=== PATIENT | female | born 1940 | race Caucasian/White ===

== ENCOUNTER 2016-12-04 13:09 | Emergency (ER) | payer OTHER ==
[~2016-12-04] VITALS: Ht 142.2 cm; Wt 44.5 kg
[2016-12-04 13:22] VITALS: BP 134/68
--- NOTE | 2016-12-04 14:04 | NUR ---
PATIENT TO BED 4 AT THIS TIME.
--- NOTE | 2016-12-04 14:46 | NUR ---
76/F BIB FAMILY C/O PAIN TO RIGHT KNEE , LEFT WRIST AND SHOULDER S/P GLF YESTERDAY---TRIPPED COMING OUT OF CAR---AMBULATORY WITH STEADY GAIT; HX---ARTHRITIS. PAIN 6/10 ACHING NON-RADAITING. AAOx4, PERRLA, BREATHING EVEN AND UNLABORED. ERMD NOTIFIED OF PATIENT STATUS.
[2016-12-04] MEDS ORDERED: ONDANSETRON 4 MG/2 ML VIAL IM ONE (15:25)
[2016-12-04] MEDS ORDERED: MORPHINE SULFATE 4 MG/ML SYR IM ONE (15:25)
[2016-12-04 15:50] VITALS: BP 127/71
--- NOTE | 2016-12-04 15:50 | NUR ---
Patient discharged with v/s stable. Written and verbal after care instructions given and explained. Patient alert, oriented and verbalized understanding of instructions. Ambulatory with steady gait. All questions addressed prior to discharge. ID band removed. Patient advised to follow up with PMD. Rx of NAPROSYN 375MG TABLET given. Patient educated on indication of medication including possible reaction and side effects. Opportunity to ask questions provided and answered.
== END 2016-12-04 15:50 | disposition home or self-care (01) ==
LOC: MED 13:09
DX: S63.502A Unspecified sprain of left wrist, initial encounter (principal); S43.402A Unspecified sprain of left shoulder joint, initial encounter; M25.561 Pain in right knee; W19.XXXA Unspecified fall, initial encounter; Y93.89 Activity, other specified; Y92.89 Other specified places as the place of occurrence of the external cause; Y99.8 Other external cause status
CPT/HCPCS: 73030; 73090; 73110; 73562; 96372; 99284; J2270; J2405

== ENCOUNTER 2019-01-17 13:49 | Emergency (ER) | payer OTHER ==
[~2019-01-17] VITALS: Ht 139.7 cm; Wt 43.3 kg
[2019-01-17 13:57] VITALS: BP 114/52
[2019-01-17] MEDS ORDERED: FAMO-90 PO (14:10)
[2019-01-17] MEDS ORDERED: CIPR500T4 PO (14:11)
--- NOTE | 2019-01-17 14:14 | NUR ---
78 Y FEMALE BIB FAMILY C/O LOWER ABD PAIN X2 DAYS. CONSTANT SHARP PAIN AT 10/10 THAT RADIATES FROM LLQ TO RLQ. PT SAW PCP YESTERDAY AND RECIEVED CIPROFLOXACINA AND PEPCID. + N/V. LAST BM YESTERDAY, NORMAL. BOWEL SOUNDS ACTIVE IN ALL 4 QUADRANTS. ABDOMEN SOFT AND ROUND. DAUGHTER REPORTS FEVER AND CHILLS, TX WITH TYLENOL THIS MORNING APPROX 0500. VSS AT THIS TIME. AA0X4. FAMILY TRANSLATING HEBREW TO UKRAINIAN. BED IS DOWN, LOCKED, BED RAIL X 1, ERMD TO SEE PT. MEDHX:DENIES RX:PEPCID, AND CIPRO
--- NOTE | 2019-01-17 14:30 | NUR ---
DR WHITLOCK AT BEDSIDE
[2019-01-17] MEDS ORDERED: NACL 0.9% 1,000 ML IV ONE (14:35)
[2019-01-17] MEDS ORDERED: KETOROLAC 30 MG/ML VIAL IVP ONE (14:35)
[2019-01-17 15:08] LABS: BILIRUBIN,URINE NEGATIVE (NEGATIVE); BLOOD, URINE NEGATIVE (NEGATIVE); LEUKOCYTE ESTERASE ,URINE 1+ (NEGATIVE); NITRITE, URINE NEGATIVE (NEGATIVE); UGLUCOSE NEGATIVE (NEGATIVE)
[2019-01-17 15:09] LABS: HEMATOCRIT 34.5 % (36-48); HEMOGLOBIN 11.4 g/dL (12.0-16.0); MEAN CORPUSCULAR HEMOGLOBIN 30 pg (27-31); MEAN CORPUSCULAR HGB CONC 33 g/dL (33-37); MEAN CORPUSCULAR VOLUME 90.3 fL (80-94); PLATELET COUNT (AUTO) 279 K/uL (140-450); RED BLOOD CELL COUNT(AUTO) 3.82 MIL/uL (4.20-5.40); RED CELL DISTRIBUTION WIDTH 13.4 % (11.6-13.7); WHITE BLOOD COUNT (AUTO) 18.7 K/uL (4.8-10.8)
[2019-01-17 15:15] LABS: APPEARANCE,URINE HAZY (CLEAR)
[2019-01-17 15:16] LABS: COLOR,URINE AMBER (YELLOW)
[2019-01-17 15:20] LABS: RBC,URINE 0-5 /HPF (0-5); WBC,URINE 16-25 (MOD) /HPF (0-5)
[2019-01-17 15:21] LABS: CARBON DIOXIDE 25.4 mmol/L (21-32); CHLORIDE 100 mmol/L (98-107); CREATININE 0.7 mg/dL (0.6-1.3); GLUCOSE 134 mg/dL (74-106); POTASSIUM 3.4 mmol/L (3.5-5.1); SODIUM SERUM 136 mmol/L (136-145); UREA NITROGEN, BLOOD 10 mg/dL (7-18)
[2019-01-17 15:27] LABS: ALBUMIN 3.1 g/dL (3.4-5.0); AMYLASE 58 U/L (25-115); ASPARTATE AMINOTRANSFERASE 20 U/L (15-37); LIPASE 66 U/L (73-393); TOTAL BILIRUBIN 0.5 mg/dL (0.0-1.0)
[2019-01-17 15:28] LABS: LYMPHOCYTES % (MANUAL) 5 % (20-46); MONOCYTES % (MANUAL) 2 % (5-12)
[2019-01-17] MEDS ORDERED: LEVOFLOXACIN 500 MG/D5W PREMIX 100 ML IV ONE (15:50)
--- NOTE | 2019-01-17 16:08 | NUR ---
PATIENT TAKEN TO CT WITH DAWNA VIA [facility].
--- NOTE | 2019-01-17 16:37 | NUR ---
LAB AT BEDSIDE
--- NOTE | 2019-01-17 16:38 | NUR ---
LACTIC ACID 2.2, DR WHITLOCK NOTIFIED.
[2019-01-17] MEDS ORDERED: NACL 0.9% 500 ML IV ONE (16:40)
--- NOTE | 2019-01-17 18:08 | NUR ---
R FOREARM IV INFILTRATED. IV REMOVED. 2 ICE PACKS APPLIED TO SITE. SITE IS RED AND SWOLLEN AT THIS TIME.
--- NOTE | 2019-01-17 18:09 | NUR ---
DR WHITLOCK NOTIFIED REGARDING INFILTRATED IV. NO ORDERS GIVEN AT THIS TIME.
--- NOTE | 2019-01-17 18:48 | NUR ---
ANOTHER ICE PACK ADDED TO SITE
--- NOTE | 2019-01-17 18:48 | NUR ---
VSS AT THIS TIME. PT AA0X4. FAMILY BEDSIDE.
--- NOTE | 2019-01-17 19:17 | NUR ---
REPORT GIVEN TO OSKAR GUILLAUME
--- NOTE | 2019-01-17 19:20 | NUR ---
PT IN BED RESTING WITH EYES OPEN. STATES PAIN 4/10 BUT TOLLERABLE. VSS. FAMILY AT BEDSIDE. NO NEEDS AT THIS TIME. CONTINUE TO MONITOR.
--- NOTE | 2019-01-17 20:25 | NUR ---
GAVE REPORT TO DAKSHA AT [facility]
[2019-01-17] MEDS ORDERED: ACETAMINOPHEN EXTRA STRENGTH 500 MG TAB PO ONE (20:40)
--- NOTE | 2019-01-17 20:46 | NUR ---
PT VITAL RECHECK. TEMP 102.1. STATES PAIN WITH POSITION CHANGE. DR JUAREZ NOTIFIED. 1G TYLENOL GIVEN. Addendum: 01/17/19 at 2102 by MED PT VITAL RECHECK. TEMP 102.1. STATES PAIN WITH POSITION CHANGE BUT TOLLERABLE. DR JUAREZ NOTIFIED. 1G TYLENOL GIVEN.
[2019-01-17] MEDS ORDERED: ACETAMINOPHEN EXTRA STRENGTH 500 MG TAB ONE (20:54)
--- NOTE | 2019-01-17 20:55 | NUR ---
DAKSHA GUILLAUME CALLED AT [facility] AND UPDATED.
[2019-01-17 20:58] VITALS: BP 109/53
--- NOTE | 2019-01-17 20:58 | NUR ---
PT LEFT TO [facility]. ACCOMPANIED BY GRAND DAUGHTER. UPON DISHCARGE, PT ALERT TO NAME, PLACE, TIME, EVENT. AMBULATORY. PT STATES, "I FEEL BETTER THAN WHEN I GO THERE."
[2019-02-01] MEDS ORDERED: ACET-9525 PO (12:09)
== END 2019-01-17 20:58 ==
LOC: MED 13:49
DX: N20.0 Calculus of kidney (principal); N83.201 Unspecified ovarian cyst, right side; Z79.2 Long term (current) use of antibiotics
CPT/HCPCS: 36415; 74176; 80053; 81001; 82150; 83605; 83690; 85025; 87040; 87086; 96361; 96365; 96375; 99285; J1885; J1956; J7030

== ENCOUNTER 2019-02-25 16:13 | Observation (INO) | payer OTHER ==
[~2019-02-25] VITALS: Ht 137.2 cm; Wt 43.3 kg
[~2019-02-25 16:13] MED LIST: ACET-9525 PO
[2019-02-25 16:40] VITALS: BP 132/68
--- NOTE | 2019-02-25 16:50 | NUR ---
PATIENT AMBULATED WITH ASSISTANCE TO BED 6.
[2019-02-25] MEDS ORDERED: KETOROLAC 15 MG/ML VIAL IVP ONE (17:10)
[2019-02-25 17:42] LABS: BASOPHILS % (AUTO) 0.7 % (0.0-2.0); EOSINOPHILS # (AUTO) 0.1 K/uL (0-0.4); EOSINOPHILS % (AUTO) 2.3 % (0.0-4.0); HEMATOCRIT 37.7 % (36-48); HEMOGLOBIN 12.4 g/dL (12.0-16.0); LYMPHOCYTES % (AUTO) 16.5 % (20.5-51.1); MEAN CORPUSCULAR HEMOGLOBIN 30 pg (27-31); MEAN CORPUSCULAR HGB CONC 33 g/dL (33-37); MEAN CORPUSCULAR VOLUME 89.7 fL (80-94); MONOCYTES # (AUTO) 0.4 K/uL (0.8-1.0); MONOCYTES % (AUTO) 6.9 % (1.7-9.3); NEUTROPHILS # (AUTO) 4.2 K/uL (1.8-7.7); NEUTROPHILS % (AUTO) 73.6 % (42.2-75.2); PLATELET COUNT (AUTO) 308 K/uL (140-450); RED CELL DISTRIBUTION WIDTH 13.9 % (11.6-13.7); WHITE BLOOD COUNT (AUTO) 5.8 K/uL (4.8-10.8)
--- NOTE | 2019-02-25 17:42 | NUR ---
PT BIB DAUGHTER C/O INTERMITTENT LLQ/LUQ ABD PAIN AND GENERALIZED WEAKNESS X 2 WEEKS. ABD FLAT, FIRM, TENDER TO TOUCH, BOWEL SOUNDS ACTIVE X4 QUADRANTS. PER PT'S DAUGHTER, PT HAD APPENDECTOMY 01/30/19. PT DENIES N/V/D. NO URINARY COMPLAINTS. VSS. HX: DENIES RX: DENIES
[2019-02-25 17:51] LABS: CARBON DIOXIDE 26.9 mmol/L (21-32); CHLORIDE 105 mmol/L (98-107); CREATININE 0.7 mg/dL (0.6-1.3); GLUCOSE 116 mg/dL (74-106); POTASSIUM 3.9 mmol/L (3.5-5.1); SODIUM SERUM 140 mmol/L (136-145); UREA NITROGEN, BLOOD 12 mg/dL (7-18)
[2019-02-25 17:57] LABS: ALBUMIN 3.3 g/dL (3.4-5.0); ASPARTATE AMINOTRANSFERASE 16 U/L (15-37); TOTAL BILIRUBIN 0.2 mg/dL (0.0-1.0)
[2019-02-25 18:01] LABS: APPEARANCE,URINE CLEAR (CLEAR); BILIRUBIN,URINE NEGATIVE (NEGATIVE); BLOOD, URINE TRACE-L (NEGATIVE); COLOR,URINE YELLOW (YELLOW); LEUKOCYTE ESTERASE ,URINE NEGATIVE (NEGATIVE); NITRITE, URINE NEGATIVE (NEGATIVE); PH,URINE 5.5 (5.0-9.0); UGLUCOSE NEGATIVE (NEGATIVE)
--- NOTE | 2019-02-25 18:12 | NUR ---
PT AMBULATED TO BATHROOM ACCOMPANIED BY DAUGHTER. STATED SHE HAD NO PAIN PRIOR TO BATHROOM AND AFTER WALKING TO BATHROOM SHE SAID HER PAIN WAS 10/16. Addendum: 02/25/19 at 1815 by [email or web address] MARINA.
[2019-02-25 18:13] LABS: RBC,URINE NONE SEEN /HPF (0-5); WBC,URINE 0-5 /HPF (0-5)
--- NOTE | 2019-02-25 20:10 | NUR ---
PT LAYING IN BED, RR EVEN AND UNLABORED. REPORTS 1/10 LLQ/L PELVIC PAIN. ALL NEEDS MET.
--- NOTE | 2019-02-25 20:17 | NUR ---
Patient will be admitted to care of DR KSESLER. Admited to MS. Will go to room 122B. Belongings list completed. Report to WENDY GUILLAUME.
--- NOTE | 2019-02-25 20:27 | NUR ---
RECEIVED REPORT FROM ER NURSE FLORINA, PATIENT AMBULATES WITH ASSISTANCE. PATIENT ANOx4, BANGLADESHI SPEAKING, DAUGHTER AT BEDSIDE. WILL FOLLOWUP CARE
[2019-02-25 20:30] VITALS: BP 138/64
--- NOTE | 2019-02-25 20:35 | NUR ---
[id number], TRAVEL PT ON PHONE TO ASSIST WITH GHANAIAN SPEAKING ONLY, HISTORY AND PHYSICAL ASSESSMENT
[2019-02-25] MEDS: DEXT 5% / NACL 0.45% 1,000 ML IV SCH (20:40)
--- NOTE | 2019-02-25 20:45 | NUR ---
RECEIVED PATIENT ANOx4, AZERI SPEAKING ONLY, AMBULATING TO BED WITH STANDBY ASSIST. BASELINE VITALS HR-75, BP-138/64, RR-20, TEMP-97.2, AND O2 SATS- 95% ON ROOM AIR, PAIN-5/10, RECEIVED TORADOL IN ER. C/O PAIN ONLY WHEN PATIENT MOVES AROUND AND AMBULATES. LEFT HAND PERIPHERAL IV 24G, FLUSHED, PATENT AND INTACT. SKIN IS INTACT, VITILIGO NOTED THROUGHOUT BODY (WHITE PATCHES/DISCOLORATION) BUT NO SIGNS OF OPEN WOUNDS. PERRLA, BRISK 3MM, LUNG SOUNDS CLEAR, EQUAL CHEST RISE, S1S2, ABDOMEN SOFT, AND TENDER TO TOUCH ON LOWER LEFT SIDE. BOWEL SOUNDS ACTIVE, LAST BM REPORTED THIS MORNING 02/25/19. DENIES CONSTIPATION OR DIARRHEA, VOMITED A WEEK AGO FROM THE PAIN AND REPORTS LOSS OF APPETITE IN PAST WEEK. PATIENT HAS BATHROOM PRIVILEGES, DAUGHTER AT BEDSIDE, ORIENTED TO CALL LIGHT AND BED, CALL LIGHT WITHIN REACH, SIDERAILS UPx2, BED LOCKED AND IN LOW POSITION. WILL CARRY OUT ORDERS AND FOLLOWUP CARE.
--- NOTE | 2019-02-25 21:30 | NUR ---
DR. RICHARDS AT BEDSIDE, HISTORY AND PHYSICAL DONE., ASSISTED WITH HIS NEEDS FOR PT.
[2019-02-25] MEDS: MORPHINE SULFATE 2 MG/ML SYR IVP PRN (22:22)
--- NOTE | 2019-02-25 23:20 | NUR ---
PATIENT REQUESTING ASSISTANCE IN USING RESTROOM. PATIENT AMBULATES TO AND FROM BED TO BATHROOM. PAIN LEVEL IS A 2/10 BUT IS TOLERABLE. PATIENT REQUESTING FOR ANOTHER BLANKET. WILL CONTINUE FREQUENT ROUNDS
[2019-02-26] VITALS: BP 120/70
--- NOTE | 2019-02-26 00:10 | NUR ---
VITAL SIGNS TAKEN, PATIENT TOLERATED WELL. ALL VITALS WITHIN NORMAL LIMITS. ASKED IF PATIENT NEEDS THE RESTROOM, DOES NOT NEED TOILETING AT THIS TIME. REORIENTED THE PATIENT TO CALL LIGHT AND TO USE IT WHEN SHE NEEDS TO USE THE RESTROOM. PATIENT DENIES PAIN AT THIS TIME, SAYS IT ONLY HURTS IF SHE LIES LEFT LATERAL POSITION. WILL CONTINUE TO MONITOR
--- NOTE | 2019-02-26 02:39 | NUR ---
CALL LIGHT ON, PATIENT REQUESTING ASSISTANCE TO WALK TO RESTROOM. ABLE TO AMBULATE TO AND FROM TOILET. IV FLUIDS STILL RUNNING, SITE IS DRY AND INTACT. ASYMPTOMATIC. DENIES PAIN.
--- NOTE | 2019-02-26 04:20 | NUR ---
PATIENT IS AWAKE TO GET LABS DRAWN, TOLD HER WE COULD DO SPONGE BATH AND BRUSH HER TEETH AT THIS TIME. PATIENT REQUESTS TO DO SPONGE BATH AND ORAL CARE IN THE MORNING WHEN SHE WAKES UP. PATIENT TOLERATED LAB DRAW WELL. SIDE RAILS UP, AND CALL LIGHT WITHIN REACH, PATIENT DOES NOT NEED TOILETING AT THIS TIME
--- NOTE | 2019-02-26 06:05 | NUR ---
PATIENT RESTING WELL IN BED, EYES CLOSED, RIGHT LATERAL, CHEST RISE AND FALL. IV CONNECTED TO D51/2NS @ 50ML. FLACC 0. SAFETY MEASURES IN PLACE.
[2019-02-26 06:33] LABS: ALBUMIN 2.9 g/dL (3.4-5.0); ANION GAP 12.6 (8-16); ASPARTATE AMINOTRANSFERASE 15 U/L (15-37); CARBON DIOXIDE 26.1 mmol/L (21-32); CHLORIDE 107 mmol/L (98-107); CREATININE 0.5 mg/dL (0.6-1.3); GLUCOSE 96 mg/dL (74-106); POTASSIUM 3.7 mmol/L (3.5-5.1); SODIUM SERUM 142 mmol/L (136-145); TOTAL BILIRUBIN 0.2 mg/dL (0.0-1.0); UREA NITROGEN, BLOOD 11 mg/dL (7-18)
--- NOTE | 2019-02-26 07:29 | NUR ---
RECEIVED REPORT FROM NECK FITTER RN. PT IS AAOX4, AMBULATORY. PT ABLE TO MAKE NEEDS KNOWN WELL IN FINNISH. PT SKIN IS INTACT. LUNG SOUNDS CLEAR. IV IN THE LEFT HAND 24G INFUSING D51/2NS AT 50ML/HR. IV IS PATENT AND INTACT. EXPLAINED POC TO PT. PT VERBALIZED UNDERSTANDING. TOLD PT TO CALL WHEN NEEDING TO AMBULATE. PT VERBALIZED UNDERSTANDING AND AGREED. BED IN LOW POSITION, CALL LIGHT WITHIN REACH. WILL ROUND FREQUENTLY ON PT.
[2019-02-26 07:46] LABS: BASOPHILS % (AUTO) 0.6 % (0.0-2.0); EOSINOPHILS # (AUTO) 0.2 K/uL (0-0.4); EOSINOPHILS % (AUTO) 2.3 % (0.0-4.0); HEMATOCRIT 35.2 % (36-48); HEMOGLOBIN 11.9 g/dL (12.0-16.0); LYMPHOCYTES % (AUTO) 15.3 % (20.5-51.1); MEAN CORPUSCULAR HEMOGLOBIN 30 pg (27-31); MEAN CORPUSCULAR HGB CONC 34 g/dL (33-37); MEAN CORPUSCULAR VOLUME 88.9 fL (80-94); MONOCYTES # (AUTO) 0.5 K/uL (0.8-1.0); MONOCYTES % (AUTO) 7.6 % (1.7-9.3); NEUTROPHILS % (AUTO) 74.2 % (42.2-75.2); PLATELET COUNT (AUTO) 285 K/uL (140-450); RED BLOOD CELL COUNT(AUTO) 3.95 MIL/uL (4.20-5.40); WHITE BLOOD COUNT (AUTO) 6.7 K/uL (4.8-10.8)
[2019-02-26 08:00] VITALS: BP 92/55
--- NOTE | 2019-02-26 08:04 | NUR ---
PATIENT HAS BEEN SCREENED AND CATEGORIZED MODERATE NUTRITION RISK. PATIENT WILL BE SEEN WITHIN 3-5 DAYS OF ADMISSION. 02/28/19[address]
--- NOTE | 2019-02-26 09:51 | NUR ---
PT RESTING IN BED WITH DAUGHTER AT BEDSIDE. ALL NEEDS CURRENTLY MET. WILL CONTINUE TO ROUND FREQUENTLY ON PT.
--- NOTE | 2019-02-26 10:28 | NUR ---
CONTACTED PATIENT'S PCP GOLD THOMPSON AT [phone] REGARDING POST DISCHARGE APPOINTMENT, ABLE TO SPEAK TO SID. SHE STATED THAT PATIENT CAN JUST WALK IN, MON TO FRI FROM 8-6PM. COPY OF APPOINTMENT PROVIDED TO THE PATIENT. INSTRUCTED WELL TO BRING DISCHARGE PACKET TO THE APPOINTMENT, ABLE TO VERBALIZE UNDERSTANDING.
--- NOTE | 2019-02-26 11:34 | NUR ---
PT RESTING IN BED WITH DAUGHTER AT BEDSIDE. PT AMBULATING WELL TO BATHROOM WITH STANDBY ASSIST. ALL NEEDS CURRENTLY MET. WILL CONTINUE TO ROUND FREQUENTLY ON PT
--- NOTE | 2019-02-26 13:20 | NUR ---
PT RESTING IN BED. ALL NEEDS CURRENTLY MET. WILL CONTINUE TO ROUND FREQUENTLY ON PT.
--- NOTE | 2019-02-26 15:34 | NUR ---
PT RESTING IN BED WITH FAMILY AT BEDSIDE. PT IN STABLE CONDITION, ALL NEEDS MET. BED IN LOW POSITION. WILL CONTINUE TO ROUND FREQUENTLY ON PT.
[2019-02-26] MEDS: DEXT 5% / NACL 0.45% 1,000 ML IV SCH (15:59)
[2019-02-26 16:00] VITALS: BP 103/63
--- NOTE | 2019-02-26 17:36 | NUR ---
PT RESTING IN BED WITH DAUGHTER AT BEDSIDE. AWAITING D/C. PAGED AT 1700. AWAITING CALLBACK FOR OK TO DC PT.
--- NOTE | 2019-02-26 19:40 | NUR ---
ENDORSED PT TO OUTSIDE RESIDENTIAL SALES PROFESSIONAL FOR CONTINUITY OF CARE. PT IN STABLE CONDITION AT THIS TIME.
--- NOTE | 2019-02-26 19:41 | NUR ---
RECD. RESTING IN BED, AWAKE, A/OX4. RESPIRATION EVEN AND UNLABORED. IV OF D5 1/2NS AT 50 ML/HR INFUSING, LEFT HAND G24 ALREADY STOPPED BY AM NURSE. PATIENT AND DAUGHTER AWARE OF DISCHARGE TONIGHT. NO COMPLAINT OF ABDOMINAL PAIN 010 AT THIS TIME 010.
[2019-02-26 19:55] VITALS: BP 130/57
--- NOTE | 2019-02-26 20:15 | NUR ---
INFORMED DR. KESSLER PATIENT DAUGHTER IS REQUESTING FOR PAIN MEDICATION PRESCRIPTION. PATIENT CAN TAKE TYLENOL EXTRA STRENGTH 1 TAB PO EVERY 4 HOURS OR IBUPROFEN 600 MG. PO EVERY 6 HRS. FOR PAIN.
--- NOTE | 2019-02-26 20:30 | NUR ---
DISCHARGE INSTRUCTIONS GIVEN TO PATIENT AND DAUGHTER WITH THE HELP OF IVORY POLISHER LIANE #[id number]. PATIENT DAUGHTER UNDERSTAND THAT PATIENT HAVE APPOINTMENT ON SUNDAY AT [address] RICHARDS. INSTRUCTED PATIENT TO TAKE EXTRA STRENGTH TYLENOL 1 TABLET FOR PAIN EVERY FOUR HOURS PER DR. KESSLER INSTRUCTION. PATIENT DAUGHTER VERBALIZED UNDERSTANDING TO ALL DISCHARGE INSTRUCTION GIVEN.
[2019-02-26] MEDS: MORPHINE SULFATE 2 MG/ML SYR IVP PRN (20:41)
--- NOTE | 2019-02-26 20:41 | NUR ---
PATIENT DAUGHTER REQUESTED TO PAIN MEDICATION BEFORE DISCHARGE. MADE AWARE THAT THEY HAVE TO WAIT FOR 45 MINUTES TO AN HOUR BEFORE THEY CAN GO HOME AFTER PAIN MEDICATION GIVEN. BOTH AGREED.
--- NOTE | 2019-02-26 21:40 | NUR ---
PATIENT RESTING COMFORTABLY IN BED. NO COMPLAINT OF PAIN 0/10.
--- NOTE | 2019-02-26 22:00 | NUR ---
SIGNED ALL DISCHARGE PAPERS. IV SALINE LOCK REMOVED.
--- NOTE | 2019-02-26 22:26 | NUR ---
TAKEN TO HOSPITAL LOBBY PARKING AREA VIA W/C IN STABLE CONDITION ACCOMPANIED BY DAUGHTER AND SENIOR CONTROLS ANALYST.
== END 2019-02-26 22:30 | disposition home or self-care (01) ==
LOC: MED 16:13 → MTU 19:56
PROVIDERS: ADMIT Internal Medicine; ATTEND Internal Medicine
DX: N83.202 Unspecified ovarian cyst, left side (principal)
CPT/HCPCS: 36415; 76856; 80053; 81001; 85025; 87081; 93976; 96374; 96375; 96376; 99285; G0378; J1885; J2270; Q0092

== ENCOUNTER 2019-08-02 14:45 | Emergency (ER) | payer OTHER ==
[~2019-08-02] VITALS: Ht 137.2 cm; Wt 42.2 kg
[2019-08-02 14:54] VITALS: BP 127/64
--- NOTE | 2019-08-02 16:02 | NUR ---
PATIENT PRESENTS TO ED WITH RIGHT KNEE AND RIGHT ARM PAIN S/P FALL A FEW HOURS AGO. PER PATIENT'S DAUGHTER, PT DID NOT HIT HER HEAD. PT STATES 10/10 PAIN, WITH LIMITATION OF MOVEMENT OF AFFECTED AREAS. NO LOC, NO VOMITING. PT TOOK TYLENOL AT 10AM THIS MORNING. PT IS AAOX4. VSS; PATIENT POSITIONED FOR COMFORT; HOB ELEVATED; BEDRAILS UP X2; BED DOWN. ER MD MADE AWARE OF PT STATUS. PMH: NONE MEDS: UNKNOWN MEDICATION FOR VAGINAL INFECTION ALLERGIES: NONE
--- NOTE | 2019-08-02 16:09 | NUR ---
Dr. Nunez is evaluating the patient at bedside.
--- NOTE | 2019-08-02 16:40 | NUR ---
RESULTS BACK AND NOTED BT ERMD AND FOR D/C.
[2019-08-02] MEDS ORDERED: MORPHINE SULFATE 4 MG/ML SYR IM ONE (17:05)
[2019-08-02] MEDS ORDERED: MORPHINE SULFATE 5 MG/ML VIAL IM ONE (17:05)
[2019-08-02 17:34] VITALS: BP 127/64
--- NOTE | 2019-08-02 17:35 | NUR ---
Patient discharged with v/s stable. Written and verbal after care instructions given and explained. Patient alert, oriented and verbalized understanding of instructions. Wheel Chair Assisted with by caregiver. All questions addressed prior to discharge. ID band removed. Patient advised to follow up with PMD. Rx of TYLENOL given. Patient educated on indication of medication including possible reaction and side effects. Opportunity to ask questions provided and answered.
== END 2019-08-02 17:35 | disposition home or self-care (01) ==
LOC: MED 14:45
DX: S80.211A Abrasion, right knee, initial encounter (principal); M25.511 Pain in right shoulder; M25.461 Effusion, right knee; W18.39XA Other fall on same level, initial encounter; Y92.89 Other specified places as the place of occurrence of the external cause; Y93.89 Activity, other specified; Y99.8 Other external cause status
CPT/HCPCS: 73030; 73562; 96372; 99283; J2270

== ENCOUNTER 2019-08-02 20:01 | Inpatient (IN) | payer OTHER ==
[~2019-08-02] VITALS: Ht 149.9 cm; Wt 45.4 kg
[2019-08-02 20:12] VITALS: BP 161/73
--- NOTE | 2019-08-02 20:36 | NUR ---
79 Y/O FEMALE BIB FAMILY C/O VOMITING S/P RECEIVING MORPHINE TODAY. PT WAS SEEN AT [facility] TODAY S/P FALL AND C/O RT LET PAIN. PT STATES SHE HAS VOMITTED 5X SINCE SHE WAS DISCHARGED AT NOON. ABD SOFT, ROUND NONTENDER. BOWEL SOUNDS PRESENT X4. RR EVEN AND UNLABORED. PT PLACED ON THE MONITOR. PT LAYING IN BED CALM AND PLEASANT. FAMILY AT BEDSIDE. MEDHX: DENIES ALLERGIES: LUKE
--- NOTE | 2019-08-02 21:02 | NUR ---
PT O2SAT 88% RA. PT PLACED ON 2L NC. O2SAT 95% ON NC
--- NOTE | 2019-08-02 22:22 | NUR ---
PT LAYING IN BED WITH EYES CLOSED, VISIBLE RISE AND FALL OF THE CHEST. PT REMAINS ON MONITOR. VSS. FAMILY AT BEDSIDE. WILL CONTINUE TO MONITOR
[2019-08-02] MEDS ORDERED: ONDANSETRON 4 MG ODT PO ONE (22:30)
[2019-08-02] MEDS ORDERED: NACL 0.9% 500 ML IV STA (22:34)
[2019-08-02] MEDS ORDERED: ONDANSETRON 4 MG ODT PO STA (22:34)
--- NOTE | 2019-08-02 22:37 | NUR ---
PT TO CT VIA [facility].
--- NOTE | 2019-08-02 22:52 | NUR ---
PT RETURN FROM CT
--- NOTE | 2019-08-02 23:23 | NUR ---
PT DENIES NAUSEA AND VOMITING AT THIS TIME.
--- NOTE | 2019-08-02 23:35 | NUR ---
LAB AT BEDSIDE.
[2019-08-02 23:50] LABS: BASOPHILS % (AUTO) 0.2 % (0.0-2.0); EOSINOPHILS % (AUTO) 0.2 % (0.0-4.0); HEMATOCRIT 37.7 % (36-48); HEMOGLOBIN 12.5 g/dL (12.0-16.0); LYMPHOCYTES # (AUTO) 0.7 K/uL (2.5-16.5); LYMPHOCYTES % (AUTO) 6.6 % (20.5-51.1); MEAN CORPUSCULAR HEMOGLOBIN 30 pg (27-31); MEAN CORPUSCULAR HGB CONC 33 g/dL (33-37); MEAN CORPUSCULAR VOLUME 89.8 fL (80-94); MONOCYTES # (AUTO) 0.3 K/uL (0.8-1.0); MONOCYTES % (AUTO) 3.1 % (1.7-9.3); NEUTROPHILS # (AUTO) 9.6 K/uL (1.8-7.7); PLATELET COUNT (AUTO) 295 K/uL (140-450); RED CELL DISTRIBUTION WIDTH 14.1 % (11.6-13.7); WHITE BLOOD COUNT (AUTO) 10.6 K/uL (4.8-10.8)
[2019-08-03 00:06] LABS: ANION GAP 12.7 (8-16); CARBON DIOXIDE 27.4 mmol/L (21-32); CHLORIDE 109 mmol/L (98-107); CREATININE 0.6 mg/dL (0.6-1.3); GLUCOSE 140 mg/dL (74-106); POTASSIUM 4.1 mmol/L (3.5-5.1); SODIUM SERUM 145 mmol/L (136-145); UREA NITROGEN, BLOOD 15 mg/dL (7-18)
[2019-08-03 00:16] LABS: NEUTROPHILS % (AUTO) 89.9 % (42.2-75.2)
--- NOTE | 2019-08-03 01:10 | NUR ---
LAYING IN BED WITH EYES CLOSED. AROUSABLE TO NAME. RR EVEN AND UNLABORED. FAMILY AT BEDSIDE. VSS. WILL CONTINUE TO MONITOR
--- NOTE | 2019-08-03 02:51 | NUR ---
Dr. Grady examining patient.
--- NOTE | 2019-08-03 03:07 | NUR ---
PT RESTING IN BED AWAKE AND ALERT. RR EVEN AND UNLABORED. REMAINS ON MONITOR. VSS. WILL CONTINUE TO MONITOR.
--- NOTE | 2019-08-03 04:13 | NUR ---
RR EVEN AND UNLABORED, PT AROUSABLE TO NAME. FAMILY AT BEDSIDE. WILL CONTINUE TO MONITOR.
--- NOTE | 2019-08-03 05:40 | NUR ---
RECEIVED REPORT FROM ED RN FOR PT'S CONTINUITY OF CARE. PT IS AAOX4, HUNGARIAN SPEAKING BUT OBEYS SIMPLE COMMANDS. VITAL SIGNS CHECKED AND CHARTED. PT IS ON ROOM AIR, HAS RIGHT FA 22G SALINE LOCK, FAMILY MEMBERS AT BEDSIDE, PT DENIES ANY PAIN. SKIN IS INTACT. MRSA NARES SCREENING DONE AND SENT TO LAB. PT VOIDED ONCE IN BEDPAN. PT WEAK DT RIGHT PATELLA FX. ON FALL PRECAUTION. SAFETY MEASURES IN PLACE. CALL LIGHT IS WITHIN REACH. WILL ENDORSE TO AM SHIFT RN FOR PT'S CONTINUITY OF CARE.
--- NOTE | 2019-08-03 05:43 | NUR ---
Patient will be admitted to care of DR RIVERO. Admited to MED SURG. Will go to room 111A. Belongings list completed. Report to MARKELL BESS.
[2019-08-03 06:45] VITALS: BP 107/51
--- NOTE | 2019-08-03 07:10 | NUR ---
RECEIVED BEDSIDE REPORT FROM HAT BLOCKING OPERATOR NURSE MARIA ALEJANDRA. PT IS CHILEAN SPEAKING ONLY, AWAKE AND IN NO DISTRESS. ON ROOM AIR. SKIN IS INTACT. IV SITE R FA [address] G. FALL PRECAUTIONS IN PLACE. CALL LIGHT IS WITHIN REACH.
[2019-08-03 08:00] VITALS: BP 118/55
[2019-08-03] MEDS ORDERED: MORPHINE SULFATE 2 MG/ML SYR IVP PRN ×2 (08:30→10:25)
[2019-08-03] MEDS ORDERED: HYDROcodone/APAP 5/325 MG 1 TAB TAB PO PRN (08:30)
--- NOTE | 2019-08-03 08:30 | NUR ---
CALLED DR RIVERO FOR DIET AND PAIN MED ORDERS. PT HAS BEEN C/O MODERATE RLE PAIN THIS AM. DR RIVERO TORB NORCO 5/325 PO Q4H FOR MODERATE PAIN; MORPHINE 2 MG IVP Q4H FOR SEVERE PAIN; REGULAR DIET; AND PT EVALUATION.
--- NOTE | 2019-08-03 10:23 | NUR ---
PT SEEN BY DR RIVERO
[2019-08-03] MEDS ORDERED: ACETAMINOPHEN 325 MG TAB PO PRN (10:25)
[2019-08-03] MEDS ORDERED: ONDANSETRON 4 MG/2 ML VIAL IVP PRN (10:25)
--- NOTE | 2019-08-03 11:00 | NUR ---
PT HAD EMESIS EPISODE X 2. PRN IV ZOFRAN ADMINISTERED.
--- NOTE | 2019-08-03 14:02 | NUR ---
PT IS VISITING WITH DAUGHTER AT THE BEDSIDE. PT STATES THAT SHE IS NO LONGER NAUSEOUS, BUT IS AFRAID TO EAT HER LUNCH BECAUSE SHE IS SCARED TO VOMIT AGAIN. PT REPORTS THAT SHE IS NOT HUNGRY AT THIS TIME. I ENCOURAGED PT TO EAT IN SMALL BITES, AND EAT ONLY THE FOODS SHE FEELS SHE WILL BE ABLE TO TOLERATED. ALSO ENCOURAGED DAUGHTER TO BRING FOOD FROM HOME, IF IT MAKES PT FEEL MORE COMFORTABLE. PT IS ON A REGULAR DIET.
--- NOTE | 2019-08-03 15:52 | NUR ---
PT'S BP IS 93/49 AT THIS TIME. PT IS ASYMPTOMATIC OF LOW BP. NO S/S OF ACUTE DISTRESS NOTED. PT ENCOURAGED TO INCREASE PO FLUID INTAKE, PROVIDED WITH A CUP OF TEA WHICH SHE AGREED TO DRINK. FAMILY IS AT BEDSIDE.
[2019-08-03 16:00] VITALS: BP 93/49
--- NOTE | 2019-08-03 17:28 | NUR ---
PT VISITING WITH FAMILY, ASKED FOR ANOTHER CUP OF TEA. NO S/S OF ANY DISTRESS.
--- NOTE | 2019-08-03 18:26 | NUR ---
BP RECHECKED, 101/62 AT THIS TIME. PT IS IN NO DISTRESS. FAMILY VISITING AT BEDSIDE. PT ATE 100% OF DINNER.
[2019-08-03 18:27] VITALS: BP 101/62
--- NOTE | 2019-08-03 19:15 | NUR ---
ENDORSED PT TO CURTAIN FRAMER NURSE IN STABLE CONDITION.
--- NOTE | 2019-08-03 19:19 | NUR ---
RECEIVED REPORT AT BEDSIDE FORM ARUN GUILLAUME DAYSHIFT NURSE AT BEDSIDE FOR CONTINUITY IF CARE, PT IN STABLE CONDITION.
--- NOTE | 2019-08-03 20:00 | NUR ---
PT IN BED SHE IS AOX3, SYRIAC SPEAKING. SKIN INTACT AND RIGHT KNEE IS SWOLLEN. PT HAS R F/A 22G INTACT AND ASYMPTOMATIC. PT ON FALLS PROTOCOL AND IS NON WEIGHT BEARING OF R LEG. V/S FOLLOWS: T 99.9 P 101 R 20 B/P 116/61 02 96% WITH 3 LITERS N/C. PT WAS STATING 87% ON ROOM AIR, SHE WAS GIVEN SUPPLEMENTAL 02 VIA N/C FOR COMFORT. PT SAID SHE HAS SOME PAIN BUT IT IS TOLERABLE AT THIS TIME. ALL FALL PROTOCOL IN PLACE.
[2019-08-03] MEDS: HYDROcodone/APAP 5/325 MG 1 TAB TAB PO PRN (21:41)
--- NOTE | 2019-08-03 22:00 | NUR ---
PT C/O 710 PAIN IN RIGHT KNEE, SHE WAS GIVEN 1 TAB NORCO PO/PRN FOR PAIN. WILL MONITOR FOR PAIN RELIEF.
[2019-08-04] VITALS: BP 97/56
--- NOTE | 2019-08-04 | NUR ---
PT IN BED RESTING WITH EYES CLOSED. V/S FOLLOWS: T 98.2 P 91 R 18 B/P 97/56 03 97% WITH 3.5 LITERS VIA N/C. ALL FALLS PRECAUTIONS IN PLACE.
[2019-08-04] MEDS: HYDROcodone/APAP 5/325 MG 1 TAB TAB PO PRN (02:05)
--- NOTE | 2019-08-04 02:10 | NUR ---
PT C/O OF 6/10 MODERATE PAIN IN KNEE AND WAS GIVEN PO/PRN NORCO. ALL REQUESTED NEEDS ATTENDED BY STAFF AND ALL FALLS PROTOCOL IN PLACE.
--- NOTE | 2019-08-04 03:50 | NUR ---
REPORT GIVEN TO CHARGE NURSE FREDY FOR CHANGE OF ASSIGNMENT. PT ASLEEP AND IN STABLE CONDITION.
--- NOTE | 2019-08-04 06:00 | NUR ---
RESTING QUIETLY. NO COMPLAIN OF PAINOR VOMITING.
--- NOTE | 2019-08-04 07:11 | NUR ---
RECEIVED REPORT FROM CHARGE NURSE. PATIENT IS FULL CODE, NKA. PATIENT CAME S/P FALL. PENDING CONSULT FROM DR CLARK FOR PATELLAR FRACTURE. PLAN IS TO DC PATIENT TO SNF OR TO HOME, PENDING CONSUL WITH DR CLARK. WILL REVIEW AND CONTINUE WITH PLAN OF CARE FOR THE DAY.
[2019-08-04 07:56] LABS: BASOPHILS % (AUTO) 0.5 % (0.0-2.0); EOSINOPHILS # (AUTO) 0.1 K/uL (0-0.4); EOSINOPHILS % (AUTO) 2.4 % (0.0-4.0); HEMATOCRIT 33.6 % (36-48); LYMPHOCYTES # (AUTO) 0.8 K/uL (2.5-16.5); LYMPHOCYTES % (AUTO) 17.4 % (20.5-51.1); MEAN CORPUSCULAR HEMOGLOBIN 30 pg (27-31); MEAN CORPUSCULAR HGB CONC 33 g/dL (33-37); MEAN CORPUSCULAR VOLUME 90.2 fL (80-94); MONOCYTES # (AUTO) 0.4 K/uL (0.8-1.0); MONOCYTES % (AUTO) 8.8 % (1.7-9.3); NEUTROPHILS # (AUTO) 3.2 K/uL (1.8-7.7); NEUTROPHILS % (AUTO) 70.9 % (42.2-75.2); PLATELET COUNT (AUTO) 198 K/uL (140-450); RED BLOOD CELL COUNT(AUTO) 3.72 MIL/uL (4.20-5.40); RED CELL DISTRIBUTION WIDTH 13.8 % (11.6-13.7); WHITE BLOOD COUNT (AUTO) 4.5 K/uL (4.8-10.8)
[2019-08-04 08:00] VITALS: BP 90/55
[2019-08-04 08:12] LABS: ANION GAP 8.2 (8-16); CARBON DIOXIDE 28.7 mmol/L (21-32); CHLORIDE 109 mmol/L (98-107); CREATININE 0.6 mg/dL (0.6-1.3); GLUCOSE 98 mg/dL (74-106); POTASSIUM 3.9 mmol/L (3.5-5.1); SODIUM SERUM 142 mmol/L (136-145); UREA NITROGEN, BLOOD 8 mg/dL (7-18)
[2019-08-04] MEDS: CELECOXIB 100 MG CAP PO SCH (08:46)
[2019-08-04] MEDS: ENOXAPARIN 30 MG/0.3 ML SYR SUBQ SCH (08:49)
--- NOTE | 2019-08-04 08:50 | NUR ---
ADMINISTERED MORNING MEDICATION. PATIENT TOLERATED WELL. DAUGHTER AT BEDSIDE. EXPLAINED THAT WE ARE PENDING CONSULT FROM DR CLARK. NO OTHER COMPLAINTS AT THIS TIME.
--- NOTE | 2019-08-04 10:05 | NUR ---
PATIENT HAS BEEN SCREENED AND CATEGORIZED MODERATE NUTRITION RISK. PATIENT WILL BE SEEN WITHIN 3-5 DAYS OF ADMISSION. 08/05/19 08/07/[address]
--- NOTE | 2019-08-04 10:42 | NUR ---
PER PT, RECOMMENDS SMALL KNEE IMMOBILIZER AND WALKER.
--- NOTE | 2019-08-04 13:16 | NUR ---
DC PLANNIN YRS OLD FEMALE PATIENT WAS ADMITTED FROM HOME WITH A DX OF GENERALIZE WEAKNESS AND PATELLA FRACTURE. CT HEAD (-) CT OF THE RIGHT KNEE SHOWED RT PATELLA FRACTURE. ADMINISTERED IVF , PT EVAL , ORTHO CONSULT WITH DR CLARK . PT RECOMMENDED KNEE IMMOBILIZER , AND PETITE WALKER. FAXED TO [facility] AND WAITING FOR DR CLARK TO SEE PT. CM TO FOLLOW Addendum: 08/05/19 at 1712 by Evy Chirinos DC PLANNING FAXED ALL THE HOME HEALTH REQUEST TO [facility] AND [facility] [phone]. [facility] WILL FOLLOW UP WITH THE PATIENT TOMORROW
[2019-08-04 16:00] VITALS: BP 92/47
--- NOTE | 2019-08-04 16:02 | NUR ---
LEFT A VOICEMAIL MESSAGE TO DR. CLARK'S NUMBER TO FOLLOW UP WITH THE CONSULT. AWAITING FOR CALL BACK. LASHANDA ASSIGNED MADE AWARE.
--- NOTE | 2019-08-04 19:30 | NUR ---
RECEIVED BEDSIDE REPORT FROM AM SHIFT RN FOR PT'S CONTINUITY OF CARE. PT IS AAOX4, YORUBA SPEAKING, FAMILY MEMBER AT BEDSIDE, AWAITING FOR MD AND ORTHO MD CONSULT, IS ON ROOM AIR, HAS RIGHT FA 22G SALINE LOCK, DENIES ANY PAIN AT THIS TIME. EXPLAINED TO PT AND FAMILY MEMBER THE WEB PRESS ROLL TENDER ROUTINE, THEY VERBALIZED UNDERSTANDING. SAFETY MEASURES IN PLACE. AND CALL LIGHT IS WITHIN REACH. WILL MONITOR PT THROUGHOUT SHIFT.
--- NOTE | 2019-08-04 20:00 | NUR ---
PT CALLED FOR BEDPAN, PT TOLERATED ACTIVITY. DENIES ANY PAIN AT THIS TIME.
--- NOTE | 2019-08-04 22:00 | NUR ---
PT LYING DOWN ASLEEP WITH NO SIGNS OF DISTRESS. WILL CONTINUE TO MONITOR PT.
[2019-08-05] VITALS: BP 94/56
--- NOTE | 2019-08-05 | NUR ---
VS CHECKED AND CHARTED. PT DENIES ANY PAIN, FOLLOWED SIMPLE COMMANDS. DENIES ANY NEEDS AT THIS TIME. WILL CONTINUE TO MONITOR PT.
--- NOTE | 2019-08-05 02:53 | NUR ---
MADE ROUNDS. PT ASLEEP WITH NO SIGNS OF DISTRESS. WILL CONTINUE TO MONITOR PT.
--- NOTE | 2019-08-05 04:17 | NUR ---
MADE ROUNDS. PT ASLEEP WITH NO SIGNS OF DISTRESS.
--- NOTE | 2019-08-05 06:21 | NUR ---
PT ASLEEP WITH NO SIGNS OF DISTRESS. WILL ENDORSE PT TO AM SHIFT RN FOR PT'S CONTINUITY OF CARE.
--- NOTE | 2019-08-05 07:20 | NUR ---
REPORT RECEIVED FROM NURSE BESS. PT SLEEPING APPEARS COMFORTABLE. CALL LIGHT AND PERSONAL ITEMS WITHIN EASY REACH, SAFETY PRECATIONS IN PLACE, WILL CONTINUE TO MONITOR.
[2019-08-05 08:00] VITALS: BP 94/49
[2019-08-05] MEDS: CELECOXIB 100 MG CAP PO SCH (08:45)
[2019-08-05] MEDS: ENOXAPARIN 30 MG/0.3 ML SYR SUBQ SCH (08:47)
--- NOTE | 2019-08-05 10:20 | NUR ---
PT AWAKE A/O ABLE TO COMMUNICATE NEEDS, VISITOR AT BEDSIDE, PT C/O NAUSEA UNRELIEVED BY CURRENT MEDICATION, PAGED, AWAITING CALL BACK. PT C/O HEADACHE, REFUSING PAIN MEDICATION AT THIS TIME, OFFERED DIVERSIONAL ACTIVITY. PT WANTS TO WAIT TO HEAR IF SHE CAN RECIEVE ADDITIONAL MEDICATION FOR NAUSEA PRIOR TO RECEIVING PAIN MEDICATION. CALL LIGHT AND PERSONAL ITEMS REMAIN WITHIN EASY REACH, SAFETY PRECAUTIONS IN PLACE, WILL CONTINUE TO MONITOR. Addendum: 08/05/19 at 1103 by Olivia Easley RN STRIKE OUT
--- NOTE | 2019-08-05 10:20 | NUR ---
PT REMAIN AWAKE A/O ABLE TO COMMUNICATE NEEDS, FAMILY AT BEDSIDE. PT DENIES PAIN, NO S/S OF ACUTE DISTRESS NOTED AT THIS TIME, CALL LIGHT AND PERSONAL ITEMS REMAIN WITHIN EASY REACH, SAFETY PRECAUTIONS IN PLACE, WILL CONTINUE TO MONITOR.
--- NOTE | 2019-08-05 11:29 | NUR ---
NICHOLAS assessment/discharge plan High Risk DC Screen Yes Name: Abbey Grijalva Home Relationship: daughter Pre-Admission Living Arrangements: Lives with Other Other: Abbey Grijalva Prior ADL Independent Current Home Health Name/Tel: N/A Current DME/02 Name/Tel: N/A Current Hospice Name/Tel: N/A Current Dialysis Name/Tel: N/A Healthcare Decision Maker: Patient Advance Directive No Information Taught: Advance Directive Community Resources Person Taught: Children Patient Teaching Tools: Community Resources Computer Generated Print Verbal Factors Affecting Learning: None Participation Level: Active Evaluation: Gestures Understanding Verbalizes Understanding Educator: NICHOLAS Toth Discipline: Case Mgt/Social Svcs Tentative Discharge Plan Summary: Patient is an 79 year old female admitted for general weakness and petella fracture. I met with patient and patient's daughter Latoya Hooper at bedside. Patient alert and oriented x4. Patient and Latoya speak Barb[place]. Patient lives at home with her daughter Abbey Grijalva and plans to return home upon discharge. Patient's pcp is Denis Denise and Abbey does not have any difficulty filling patient's prescriptions at pharmacy. Abbey is the one who takes patient to pcp's office. Patient denied hx of mental health and alcohol/substance abuse. I provided patient and Latoya with education on [email or web address] for community resources. They do not have any questions/concerns at this time. Supervisor Beam Department and/or Air Brake Rigger will follow up as needed. Signature: NICHOLAS Toth Date: Aug 05, 2019
--- NOTE | 2019-08-05 13:00 | NUR ---
PT SLEEPING AT THIS TIME, APPEARS COMFORTABLE, NO S/S OF ACUTE DISTRESS NOTED AT THIS TIME, CALL LIGHT AND PERSONAL ITEMS WITHIN EASY REACH, SAFETY PRECAUTIONS IN PLACE, WILL CONTINUE TO MONITOR
[2019-08-05 16:00] VITALS: BP 107/63
--- NOTE | 2019-08-05 16:00 | NUR ---
PT REMAIN AWAKE A/O ABLE TO COMMUNICATE NEEDS, FAMILY AT BEDSIDE. PT DENIES PAIN, NO S/S OF ACUTE DISTRESS NOTED AT THIS TIME, PT AND FAMILY REQUESTING DC TO HOME WITH HOME HEALTH PT HEATH, PER PT AND DAUGHTER, SHE LIVES WITH HER DAUGHTER WHO IS WILLING TO CARE FOR HER AT HOME, NOTIFIED CHARGE NURSE [employer] PILOT AND MD PAGED. CALL LIGHT AND PERSONAL ITEMS REMAIN WITHIN EASY REACH, SAFETY PRECAUTIONS IN PLACE, WILL CONTINUE TO MONITOR
[2019-08-05] MEDS ORDERED: CELE100C PO (17:22)
[2019-08-05] MEDS ORDERED: ACET-1182 PO (17:22)
[2019-08-05] MEDS ORDERED: LOV30I SUBQ (17:22)
[2019-08-05] MEDS ORDERED: ACET-9525 PO (17:22)
--- NOTE | 2019-08-05 18:55 | NUR ---
PT REMAIN AWAKE A/O ABLE TO COMMUNICATE NEEDS PT DENIES PAIN, NO S/S OF ACUTE DISTRESS NOTED AT THIS TIME. PT AND DAUGHTER PROVIDED DISCHARGE INSTRUCTIONS USING TRANSLATION SERVICES [facility] #[id number], VERBALIZED UNDERSTANDING OF EDUCATION, AGREEABLE TO CALL DR RIVERO 08/06/2019 TO ROLLOUT MANAGER ADDITIONAL PRESCRIPTIONS AND WILL UTILIZE OTC PAIN MEDICATION PER ORDER IF THE PT EXPERIENCES PAIN TONIGHT.PER PT SHE IS UP TO DATE WITH THE PNEUMONIA AND FLU VACCINES. S/L REMOVED CATHETER INTACT. PT DCD HOME W DAUGTER VIA WHEELCHAIR WITH ALL PERSONAL BELONGINGS TO PERSONAL VEHICLE.
== END 2019-08-05 18:55 | DRG 342 ==
LOC: MED 20:01 → MTU 08-03 05:06
PROVIDERS: ADMIT Internal Medicine Pulmonary Disease; ATTEND Internal Medicine Pulmonary Disease
DX: S82.001A Unspecified fracture of right patella, initial encounter for closed fracture (principal); M25.061 Hemarthrosis, right knee; W18.30XA Fall on same level, unspecified, initial encounter; Z85.118 Personal history of other malignant neoplasm of bronchus and lung; Y93.89 Activity, other specified; Y92.89 Other specified places as the place of occurrence of the external cause; Y99.8 Other external cause status
CPT/HCPCS: 36415; 70450; 73700; 80048; 84484; 85025; 87081; 93005; 97110; 97112; 97116; 97161-GP; 97530; 99285; J1650; J2405; J7030; Q0162

== ENCOUNTER 2020-12-14 13:18 | Inpatient (IN) | payer OTHER, SELFPAY ==
[~2020-12-14] VITALS: Ht 137.2 cm; Wt 48.1 kg
[~2020-12-14 13:18] MED LIST changes: +ACET-1182 PO; +CELE100C PO; +LOV30I SUBQ
[2020-12-14 13:23] VITALS: BP 130/70
[2020-12-14 14:20] LABS: BASOPHILS # (AUTO) 0.1 K/uL (0.00-0.22); BASOPHILS % (AUTO) 0.8 % (0.0-2.0); EOSINOPHILS # (AUTO) 0.1 K/uL (0-0.4); EOSINOPHILS % (AUTO) 0.8 % (0.0-4.0); HEMATOCRIT 42.4 % (36-48); HEMOGLOBIN 14.3 g/dL (12.0-16.0); LYMPHOCYTES # (AUTO) 0.4 K/uL (2.5-16.5); LYMPHOCYTES % (AUTO) 4.2 % (20.5-51.1); MEAN CORPUSCULAR HEMOGLOBIN 31 pg (27-31); MEAN CORPUSCULAR HGB CONC 34 g/dL (33-37); MEAN CORPUSCULAR VOLUME 91.9 fL (80-94); MONOCYTES # (AUTO) 0.6 K/uL (0.8-1.0); MONOCYTES % (AUTO) 6.4 % (1.7-9.3); NEUTROPHILS # (AUTO) 8.1 K/uL (1.8-7.7); NEUTROPHILS % (AUTO) 87.8 % (42.2-75.2); PLATELET COUNT (AUTO) 249 K/uL (140-450); RED BLOOD CELL COUNT(AUTO) 4.61 MIL/uL (4.20-5.40); RED CELL DISTRIBUTION WIDTH 13.3 % (11.6-13.7); WHITE BLOOD COUNT (AUTO) 9.2 K/uL (4.8-10.8)
[2020-12-14 14:20] LABS: APPEARANCE,URINE CLEAR (CLEAR); BILIRUBIN,URINE NEGATIVE (NEGATIVE); BLOOD, URINE NEGATIVE (NEGATIVE); COLOR,URINE YELLOW (YELLOW); LEUKOCYTE ESTERASE ,URINE NEGATIVE (NEGATIVE); NITRITE, URINE NEGATIVE (NEGATIVE); UGLUCOSE NEGATIVE (NEGATIVE)
[2020-12-14 14:34] LABS: PROTHROMBIN TIME 9.9 secs (10.8-13.4)
[2020-12-14 14:36] LABS: ALBUMIN 3.1 g/dL (3.4-5.0); ANION GAP 14.3 (8-16); ASPARTATE AMINOTRANSFERASE 30 U/L (15-37); CARBON DIOXIDE 21.8 mmol/L (21-32); CHLORIDE 100 mmol/L (98-107); CREATININE 0.6 mg/dL (0.6-1.3); GLUCOSE 181 mg/dL (74-106); POTASSIUM 4.1 mmol/L (3.5-5.1); SODIUM SERUM 132 mmol/L (136-145); TOTAL BILIRUBIN 0.4 mg/dL (0.0-1.0); UREA NITROGEN, BLOOD 10 mg/dL (7-18)
[2020-12-14] MEDS ORDERED: ONDANSETRON 4 MG/2 ML VIAL IVP PRN (14:55)
[2020-12-14] MEDS ORDERED: KCL 20 MEQ/WATER INJ PREMIX 200 ML IV PRN ×2 (14:55→15:34)
[2020-12-14] MEDS ORDERED: MAG SULF 2000 MG/WATER PREMIX 50 ML IV PRN (14:55)
[2020-12-14] MEDS ORDERED: HYDROcodone/APAP 5/325 MG 1 TAB TAB PO PRN (14:55)
[2020-12-14] MEDS ORDERED: POTASSIUM CHLORIDE 10 MEQ TABER PO PRN (14:55)
[2020-12-14] MEDS ORDERED: MAGNESIUM OXIDE 400 MG TAB PO PRN (14:55)
[2020-12-14] MEDS ORDERED: ACETAMINOPHEN 325 MG TAB PO PRN (14:55)
[2020-12-14 17:30] VITALS: BP 141/78
[2020-12-14] MEDS: PIPERACILLIN/TAZOBACTAM 3.375 GM in DEXTROSE 5% 50 ML IV SCH (18:13)
[2020-12-14 20:00] VITALS: BP 119/71
[2020-12-15] VITALS: BP 126/74
[2020-12-15] MEDS: PIPERACILLIN/TAZOBACTAM 3.375 GM in DEXTROSE 5% 50 ML IV SCH ×5 (00:11→23:21)
[2020-12-15 04:00] VITALS: BP 105/58
[2020-12-15 06:32] LABS: BASOPHILS % (AUTO) 0.7 % (0.0-2.0); EOSINOPHILS # (AUTO) 0.2 K/uL (0-0.4); HEMATOCRIT 39.7 % (36-48); HEMOGLOBIN 13.5 g/dL (12.0-16.0); LYMPHOCYTES # (AUTO) 0.7 K/uL (2.5-16.5); LYMPHOCYTES % (AUTO) 9.7 % (20.5-51.1); MEAN CORPUSCULAR HEMOGLOBIN 32 pg (27-31); MEAN CORPUSCULAR HGB CONC 34 g/dL (33-37); MEAN CORPUSCULAR VOLUME 92.7 fL (80-94); MONOCYTES # (AUTO) 0.6 K/uL (0.8-1.0); MONOCYTES % (AUTO) 8.7 % (1.7-9.3); NEUTROPHILS # (AUTO) 5.4 K/uL (1.8-7.7); NEUTROPHILS % (AUTO) 77.9 % (42.2-75.2); PLATELET COUNT (AUTO) 232 K/uL (140-450); RED BLOOD CELL COUNT(AUTO) 4.28 MIL/uL (4.20-5.40); RED CELL DISTRIBUTION WIDTH 13.3 % (11.6-13.7)
[2020-12-15 06:48] LABS: ALBUMIN 2.7 g/dL (3.4-5.0); ANION GAP 12.6 (8-16); ASPARTATE AMINOTRANSFERASE 36 U/L (15-37); CARBON DIOXIDE 22.5 mmol/L (21-32); CHLORIDE 105 mmol/L (98-107); CHOL/HDL RATIO 2.8 (1-4.5); CREATININE 0.7 mg/dL (0.6-1.3); GLUCOSE 99 mg/dL (74-106); HDL CHOLESTEROL 49 mg/dL (40-60); LDL (CALC) 70 mg/dL (60-100); MAGNESIUM 2.1 mg/dL (1.8-2.4); POTASSIUM 4.1 mmol/L (3.5-5.1); SODIUM SERUM 136 mmol/L (136-145); TOTAL BILIRUBIN 0.6 mg/dL (0.0-1.0); TRIGLYCERIDES 93 mg/dL (30-150); UREA NITROGEN, BLOOD 8 mg/dL (7-18)
[2020-12-15 08:00] VITALS: BP 114/60
[2020-12-15 12:00] VITALS: BP 124/72
[2020-12-15 16:00] VITALS: BP 90/62
[2020-12-15 20:00] VITALS: BP 102/47
[2020-12-15] MEDS: BENZONATATE 100 MG CAPLF PO PRN (23:51)
[2020-12-16] VITALS: BP_SYST 104; BP_SYST 93; BP_DIAS 50; BP_DIAS 52
[2020-12-16 04:00] VITALS: BP 105/52
[2020-12-16] MEDS: PIPERACILLIN/TAZOBACTAM 3.375 GM in DEXTROSE 5% 50 ML IV SCH ×4 (05:22→23:17)
[2020-12-16 06:09] LABS: BASOPHILS # (AUTO) 0.1 K/uL (0.00-0.22); BASOPHILS % (AUTO) 1.2 % (0.0-2.0); EOSINOPHILS # (AUTO) 0.4 K/uL (0-0.4); EOSINOPHILS % (AUTO) 6.3 % (0.0-4.0); HEMATOCRIT 39.4 % (36-48); HEMOGLOBIN 13.5 g/dL (12.0-16.0); LYMPHOCYTES # (AUTO) 0.7 K/uL (2.5-16.5); LYMPHOCYTES % (AUTO) 10.4 % (20.5-51.1); MEAN CORPUSCULAR HEMOGLOBIN 32 pg (27-31); MEAN CORPUSCULAR HGB CONC 34 g/dL (33-37); MEAN CORPUSCULAR VOLUME 92.4 fL (80-94); MONOCYTES # (AUTO) 0.5 K/uL (0.8-1.0); NEUTROPHILS # (AUTO) 4.7 K/uL (1.8-7.7); NEUTROPHILS % (AUTO) 74.1 % (42.2-75.2); PLATELET COUNT (AUTO) 237 K/uL (140-450); RED BLOOD CELL COUNT(AUTO) 4.26 MIL/uL (4.20-5.40); RED CELL DISTRIBUTION WIDTH 13.2 % (11.6-13.7); WHITE BLOOD COUNT (AUTO) 6.4 K/uL (4.8-10.8)
[2020-12-16 06:50] LABS: ALBUMIN 2.4 g/dL (3.4-5.0); ANION GAP 13.6 (8-16); ASPARTATE AMINOTRANSFERASE 30 U/L (15-37); CARBON DIOXIDE 26.1 mmol/L (21-32); CHLORIDE 106 mmol/L (98-107); CREATININE 0.7 mg/dL (0.6-1.3); GLUCOSE 88 mg/dL (74-106); MAGNESIUM 1.9 mg/dL (1.8-2.4); POTASSIUM 3.7 mmol/L (3.5-5.1); SODIUM SERUM 142 mmol/L (136-145); TOTAL BILIRUBIN 0.5 mg/dL (0.0-1.0); UREA NITROGEN, BLOOD 7 mg/dL (7-18)
[2020-12-16 08:00] VITALS: BP 109/65
[2020-12-16] MEDS: MULTIVITAMIN 1 TAB PO SCH (09:06)
[2020-12-16 12:00] VITALS: BP 92/51
[2020-12-16 16:00] VITALS: BP 98/56
[2020-12-16 20:00] VITALS: BP 101/65
[2020-12-17] VITALS: BP 105/60
[2020-12-17 04:00] VITALS: BP 101/55
[2020-12-17] MEDS: BENZONATATE 100 MG CAPLF PO PRN (04:53)
[2020-12-17] MEDS: PIPERACILLIN/TAZOBACTAM 3.375 GM in DEXTROSE 5% 50 ML IV SCH ×2 (05:18→12:22)
[2020-12-17 05:32] LABS: BASOPHILS # (AUTO) 0.1 K/uL (0.00-0.22); EOSINOPHILS # (AUTO) 0.4 K/uL (0-0.4); HEMATOCRIT 41.6 % (36-48); LYMPHOCYTES # (AUTO) 0.6 K/uL (2.5-16.5); LYMPHOCYTES % (AUTO) 9.7 % (20.5-51.1); MEAN CORPUSCULAR HEMOGLOBIN 32 pg (27-31); MEAN CORPUSCULAR HGB CONC 34 g/dL (33-37); MEAN CORPUSCULAR VOLUME 93.8 fL (80-94); MONOCYTES # (AUTO) 0.5 K/uL (0.8-1.0); MONOCYTES % (AUTO) 8.6 % (1.7-9.3); NEUTROPHILS # (AUTO) 4.4 K/uL (1.8-7.7); NEUTROPHILS % (AUTO) 73.7 % (42.2-75.2); PLATELET COUNT (AUTO) 236 K/uL (140-450); RED BLOOD CELL COUNT(AUTO) 4.44 MIL/uL (4.20-5.40); RED CELL DISTRIBUTION WIDTH 13.5 % (11.6-13.7)
[2020-12-17 05:45] LABS: ALBUMIN 2.4 g/dL (3.4-5.0); ANION GAP 9.3 (8-16); ASPARTATE AMINOTRANSFERASE 21 U/L (15-37); CARBON DIOXIDE 28.2 mmol/L (21-32); CHLORIDE 106 mmol/L (98-107); CREATININE 0.8 mg/dL (0.6-1.3); GLUCOSE 94 mg/dL (74-106); POTASSIUM 3.5 mmol/L (3.5-5.1); SODIUM SERUM 140 mmol/L (136-145); TOTAL BILIRUBIN 0.4 mg/dL (0.0-1.0); UREA NITROGEN, BLOOD 6 mg/dL (7-18)
[2020-12-17 08:00] VITALS: BP 112/67
[2020-12-17] MEDS: MULTIVITAMIN 1 TAB PO SCH (08:40)
[2020-12-17 12:00] VITALS: BP 112/68
[2020-12-17] MEDS ORDERED: ACET-1182 PO (15:43)
[2020-12-17] MEDS ORDERED: ACET-9525 PO (15:43)
[2020-12-17] MEDS ORDERED: BENZ100C6 PO (15:43)
[2020-12-17 16:07] VITALS: BP 112/68
== END 2020-12-17 17:10 | disposition hospice, home (50) | DRG 143 ==
LOC: MED 13:18 → MTU 14:58
PROVIDERS: ADMIT Hospitalist; ATTEND Hospitalist
PROC: 0W9B3ZZ Drainage of Left Pleural Cavity, Percutaneous Approach (ICD-10-PCS; principal; 2020-12-15)
DX: J90 Pleural effusion, not elsewhere classified (principal); J96.01 Acute respiratory failure with hypoxia; E87.2 Acidosis; Z51.5 Encounter for palliative care; C34.90 Malignant neoplasm of unspecified part of unspecified bronchus or lung; E87.1 Hypo-osmolality and hyponatremia; Z90.49 Acquired absence of other specified parts of digestive tract; Z20.822 Contact with and (suspected) exposure to COVID-19
CPT/HCPCS: 36415; 36600; 71045; 72100; 76604; 76942; 80053; 82803; 83036; 83605; 83735; 83880; 84484; 85025; 85610; 85730; 87040; 87081; 87086; 93005; 97163-GP; 97530; 99291; J2001; J2543; J7060